=== PATIENT | female | born 1990 | race Caucasian/White ===

== ENCOUNTER 2016-12-31 08:40 | Inpatient (IN) | payer OTHER ==
[~2016-12-31] VITALS: Ht 152.4 cm; Wt 64.4 kg
[2016-12-31] VITALS (58 sets, daily range): BP systolic 101–155; BP diastolic 50–96; PULSE 81–131; RESP 18–20; TEMP 97.7–98.7
[~2016-12-31 08:40] MED LIST: IBUP800T23 PO
[2016-12-31] MEDS ORDERED: LACTATED RINGER'S 1000 ML INJ 1,000 ML IV PRN (09:54)
--- NOTE | 2016-12-31 09:58 | HHI.HP ---
HPI Chief Complaint Induction for post-dates Date Seen: Dec 31, 2016 Travel History International Travel<30 Days: No Contact w/Intl Traveler<30Days: No Known Affected Area: No History of Present Illness HPI Patient is a 26-year-old at 41/0 weeks gestation that presents to the [facility] for induction of labor. Patient is doing well today and has no complaints. She denies loss of fluid, vaginal bleeding, abnormal vaginal discharge, dysuria, fever, chills, abdominal pain. She endorses positive movements. Patient gets her care with [facility]. All her labs were negative or within normal limits. Notably, she is GBS negative. Her due date was December 24, 2016. She has an anterior placenta and baby is in the cephalic position. She is expecting a baby girl named Kandi. Para: 0 : 1 Miscarriage: 0 : 0 History Past Medical History Medical History: Denies Significant Hx Obstetric History Obstetric History Past Surgical History Narrative Surgical Cholecystectomy 4 years ago Family History Narrative Family History Dad has hypertension Social History Alcohol Use: No Tobacco Use: No Substance Abuse: No Allergies-Medications (Allergen,Severity, Reaction): Coded Allergies: No Known Allergies (Unverified , 04/24/15) Home Meds Discontinued Scripts Ibuprofen 800 Mg [id number] Mg PO TID 30 Days Ref 4 Prov:Alyson Varma MD 04/24/15 Review of Systems General / Constitutional: No: Fever, Chills HENT: No: Headaches Cardiovascular: No: Chest Pain or Discomfort, Palpitations, Edema Respiratory: No: Cough, Short of Breath Gastrointestinal: No: Nausea, Vomiting, Diarrhea, Abdominal Pain Genitourinary: No: Dysuria, Discharge, Vaginal Bleeding Musculoskeletal: Edema (Mild) Skin: No Rash Physical Exam Narrative GENERAL: Well-nourished, well-developed patient. SKIN: Warm and dry. HEAD: Normocephalic and atraumatic. EYES: No scleral icterus. No injection or drainage. ENT: No nasal drainage noted. Mucous membranes pink. Airway patent. NECK: Supple, trachea midline. No JVD. CARDIOVASCULAR: Regular rate and rhythm without murmurs, gallops, or rubs. RESPIRATORY: Breath sounds equal bilaterally. No accessory muscle use. BREASTS: Bilateral exam showed no masses , no retractions, no nipple discharge. ABDOMEN/GI: Abdomen soft, non-tender, bowel sounds present, no rebound, no guarding Gravid to 41 weeks size Fundal Height: 41 GENITOURINARY: External Genitalia: intact and normal in appearance Cervix: Posterior Dilatation: 3 cm Effacement: 50% Station: -2 Presentation: Cephalic Membranes: Intact Uterine Contractions: Minimal, infrequent FHT's: Category: 1 Baseline: 145 Reactive: Up to 160 Variability: Moderate Decels: None EXTREMITIES: No cyanosis or edema. BACK: Nontender without obvious deformity. No CVA tenderness. NEUROLOGICAL: Awake and alert. Motor and sensory grossly within normal limits. Five out of 5 muscle strength in all muscle groups. Normal speech. Data Data Vital Signs Reviewed: Yes Orders Admit To Inpatient (12/31/16 ) Code Status (12/31/16 09:54) Vital Signs (Adult) .Per protocol (12/31/16 09:54) Activity Oob Ad Ivett (12/31/16 09:54) Heart (12/31/16 09:54) Amnioinfusion (12/31/16 09:54) Urinary Catheter Management .ONCE (12/31/16 09:54) Diet Liquid (12/31/16 Breakfast) Lactated Ringer's 1000 Ml Inj (Lr 1000 M (12/31/16 09:54) Lactated Ringer's 1000 Ml Inj (Lr 1000 M (12/31/16 09:54) Sodium Chlorid 0.9% 500 Ml Inj (Ns 500 M (12/31/16 10:00) Sodium Chlor 0.9% 1000 Ml Inj (Ns 1000 M (12/31/16 10:14) Lidocaine 1% Inj (50 Ml) (Xylocaine 1% I (12/31/16 10:00) Citric Acid-Sodium Citrate Liq (Bicitra (12/31/16 10:00) Ondansetron Inj (Zofran Inj) (12/31/16 10:00) Fentanyl Inj (Fentanyl Inj) (12/31/16 10:00) Fentanyl Inj (Fentanyl Inj) (12/31/16 10:00) Complete Blood Count With Diff (12/31/16 09:54) Hold Clot (12/31/16 09:54) Abo/Rh Blood Type (12/31/16 09:54) Urinalysis - C+S If Indicated (12/31/16 09:54) Resp Oxygen Non Rebreathe Mask (12/31/16 ) ^ Epidural / Intrathecal Infus (12/31/16 09:54) Oxytocin 30 Units-500ml Premix (Pitocin (12/31/16 10:00) Lidocaine 1% Inj (50 Ml) (Xylocaine 1% I (12/31/16 10:00) Light Mineral Oil (Muri-Lube Oil) (12/31/16 10:00) Inpatient Certification (12/31/16 ) Specimen To Be Collected PRN (12/31/16 09:54) Assessment/Plan Problem List: (1) 41 weeks gestation of (2) Post term , 41 weeks Assessment and Plan 26 at 41/0 weeks gestation, GBS negative -Intrauterine - tracing category 1, reassuring -Minimal, infrequent contractions -Cervical dilation to 3 cm -Admit for induction -Start Pitocin -Expect vaginal delivery -Patient may want an epidural Discharge Planning Anticipate discharge in 3 days Renuka Coburn MD R1 Dec 31, 2016 09:58
[2016-12-31] MEDS ORDERED: OXYTOCIN 30 UNITS-500ML PREMIX 500 ML IV ONE (10:00)
[2016-12-31] MEDS ORDERED: LIDOCAINE HCL 1% 50 ML VIAL INFIL PRN (10:00)
[2016-12-31] MEDS ORDERED: CITRIC ACID-SODIUM CITRATE LIQ 30 ML UDC PO SCH (10:00)
[2016-12-31] MEDS ORDERED: LIDOCAINE HCL 1% 50 ML VIAL I-DERMAL PRN (10:00)
[2016-12-31] MEDS ORDERED: ONDANSETRON HCL 4 MG/2 ML VIAL IV PRN (10:00)
[2016-12-31] MEDS ORDERED: MINERAL OIL 10 ML VIAL TOPICAL PRN (10:00)
[2016-12-31] MEDS ORDERED: SODIUM CHLORID 0.9% 500 ML INJ 500 ML IV PRN (10:00)
[2016-12-31 10:07] LABS: BACTERIA, URINE RARE /hpf; BLOOD, URINE NEG (NEG); GLUCOSE,URINE NEG (NEG); KETONE, URINE NEG (NEG); MUCUS URINE FEW /lpf (OCC); NITRITE,URINE NEG (NEG); RENAL EPITHELIAL CELLS <1 /hpf; SQUAMOUS EPITHELIAL CELL URINE 1 /hpf (0-5); URINE COLOR YELLOW (YELLW/STRAW)
[2016-12-31 10:08] LABS: COMMENT (UR) CULT NOT INDICATED; CULTURE IF INDICATED CULT NOT INDICATED
[2016-12-31 10:13] LABS: AUTOMATED NEUTROPHIL # 8.4 TH/MM3 (1.8-7.7); BASOPHIL # 0.1 TH/MM3 (0-0.2); BASOPHIL % 0.5 % (0.0-2.0); EOSINOPHIL # 0.1 TH/MM3 (0-0.4); EOSINOPHIL % 0.9 % (0.0-4.0); HEMATOCRIT 38.3 % (35.0-46.0); LYMPH % 19.6 % (9.0-44.0); LYMPHOCYTE # 2.3 TH/MM3 (1.0-4.8); MEAN CORPUSCULAR HEMOGLOBIN 32.8 PG (27.0-34.0); MEAN CORPUSCULAR HGB CONC 35.3 % (32.0-36.0); MONO % 7.5 % (0.0-8.0); NEUT % 71.5 % (16.0-70.0); PLATELET COUNT 230 TH/MM3 (150-450); RED BLOOD COUNT 4.12 MIL/MM3 (4.00-5.30); RED CELL DISTRIBUTION WIDTH 13.1 % (11.6-17.2); WHITE BLOOD COUNT 11.8 TH/MM3 (4.0-11.0)
[2016-12-31] MEDS ORDERED: SODIUM CHLOR 0.9% 1000 ML INJ 1,000 ML IV PRN (10:14)
[2016-12-31 10:15] LABS: HEMO FLAGS AUTO DIFF
[2016-12-31] MEDS ORDERED: OXYTOCIN 30 UNITS-500ML PREMIX 500 ML IV SCH (10:30)
--- NOTE | 2016-12-31 10:36 | PD.LABORPN ---
Subjective Subjective This patient is a 26-year-old white female at 41 weeks sent for postdates induction she is [facility] heart rate tracing reactive and no Salvador contractions. Membranes intact cervix is 3/50 and -3 vertex presentation. Plan to begin Pitocin labor induction with rupture the membranes as soon as feasible. Objective Objective Pelvic Exam: Cervix: [-] Dilatation: [3-] Effacement: [50-] Station: [-3] Presentation: [-vtx] Membranes: [intact ] Uterine Contractions: [none-] FHT's: Category: [1-] Baseline: [133-] Reactive: [yes-] Variability: [mod-] Decels: [none-] Assessment/Plan Assessment and Plan Plan to begin Pitocin labor induction and follow that with artificial rupture membranes when feasible, plan labor management and anticipate vaginal delivery Jamari Nava II, MD Dec 31, 2016 10:36
[2016-12-31 10:55] LABS: BANDS 3 % (0-6); NEUTROPHIL # MANUAL DIFF 8.1 TH/MM3 (1.8-7.7); POLYS (SEG NEUTROPHILS) 66 % (16-70); WBC DIFF SAMPLE 100
[2016-12-31 10:56] LABS: PLATELET ESTIMATE SMEAR NORMAL (NORMAL); PLATELET MORPHOLOGY NORMAL (NORMAL); SCAN/DIFF FINAL DIFF MANUAL
--- NOTE | 2016-12-31 12:12 | PD.LABORPN ---
Subjective Subjective AROM - clear , IUPC inserted pit running cx 4/60/-3 vtx FHR reactive continue labor management Objective Vital Signs Vital Signs Date Time Temp Pulse Resp B/P Pulse Ox O2 Delivery O2 Flow Rate FiO2 12/31/16 11:30 101 138/85 12/31/16 11:02 20 12/31/16 11:02 91 123/90 Objective Pelvic Exam: Cervix: [-] Dilatation: [-4] Effacement: [-60] Station: [-3] Presentation: [vtx-] Membranes: ruptured] Uterine Contractions: [-irreg] FHT's: Category: [1-] Baseline: [-133] Reactive: [-yes] Variability: [mod-] Decels: [-none] Assessment/Plan Problem List: (1) 41 weeks gestation of (2) Post term , 41 weeks Jamari Nava II, MD Dec 31, 2016 12:12
[2016-12-31] MEDS ORDERED: PREN29TA PO (12:50)
[2016-12-31] MEDS: LACTATED RINGER'S 1000 ML INJ 1,000 ML IV SCH ×2 (14:09→18:00)
[2016-12-31] MEDS ORDERED: fentaNYL 2MCG-BUPIV 0.125% INJ 100 ML ONE (17:30)
[2017-01-01] VITALS (16 sets, daily range): BP systolic 106–147; BP diastolic 65–89; PULSE 100–151; RESP 18–20; TEMP 98–100.4
[2017-01-01] MEDS: LACTATED RINGER'S 1000 ML INJ 1,000 ML IV SCH ×2 (02:00→04:53)
--- NOTE | 2017-01-01 02:33 | PD.LABORPN ---
Subjective Subjective This primiparous patient is in the second stage of labor. She has a fairly dense epidural and was not able to feel movement anything they tried to push for 15-30 minutes and the was not making any progress she was allowed to labor down epidural is been turned off she started to feel a little bit but and she's pushed now for another 30 minutes but there is little progress the baby's head is still -2 with caput and molding. The patient can push and generate pressure in the pelvis however the baby's heart rate tracing is category 2 , with at times late decelerations and at other times of diminished heart rate variability. My opinion the baby would not tolerate another 1-2 hours of trying to push and that do so with the baby at risk for being acidotic time of and that's only she can make that her progress which I doubt at this stage she would be able to even get the baby's head to the pelvic floor during that time. So would recommend delivery for this baby due to nonreassuring heart rate tracing and failure to progress Objective Vital Signs Vital Signs Date Time Temp Pulse Resp B/P Pulse Ox O2 Delivery O2 Flow Rate FiO2 01/01/17 01:32 18 01/01/17 01:30 111 129/65 01/01/17 01:00 98.5 115 117/78 01/01/17 00:45 18 01/01/17 00:31 151 145/84 01/01/17 00:15 18 01/01/17 00:03 100 123/89 12/31/16 23:40 106 12/31/16 23:35 131 12/31/16 23:30 111 137/71 12/31/16 23:30 97.9 12/31/16 23:30 130 12/31/16 23:15 18 12/31/16 23:10 111 12/31/16 23:05 109 12/31/16 23:00 112 12/31/16 23:00 110 118/66 12/31/16 22:39 18 12/31/16 22:35 110 12/31/16 22:30 108 141/82 12/31/16 22:30 95 12/31/16 22:11 18 12/31/16 22:10 102 12/31/16 22:05 101 12/31/16 22:00 105 12/31/16 22:00 104 127/79 12/31/16 21:56 18 12/31/16 21:30 94 12/31/16 21:30 98 129/85 12/31/16 21:15 18 12/31/16 21:10 102 12/31/16 21:05 104 12/31/16 21:01 101 111/62 12/31/16 21:00 98.3 101 12/31/16 20:45 18 12/31/16 20:40 100 12/31/16 20:35 96 12/31/16 20:30 100 139/91 12/31/16 20:06 18 12/31/16 20:05 84 12/31/16 20:00 83 12/31/16 20:00 82 116/62 12/31/16 19:32 18 12/31/16 19:30 84 101/50 12/31/16 19:30 81 12/31/16 19:30 18 12/31/16 19:14 18 12/31/16 19:00 93 18 109/62 12/31/16 18:32 98.7 18 12/31/16 18:30 96 12/31/16 18:30 97 126/80 Objective Pelvic Exam: Cervix: [10-] Dilatation: [10-] Effacement: [100-] Station: [-2] Presentation: [vtx-] Membranes: ruptured] Uterine Contractions: [reg-] FHT's: Category: [2-] Baseline: [-155] Reactive: [-at times NR at other] Variability: [minimal to moderate-] Decels: [occasional late decels-] Assessment/Plan Problem List: (1) 41 weeks gestation of (2) Post term , 41 weeks Jamari Nava II, MD Jan 01, 2017 02:33
[2017-01-01] MEDS ORDERED: ceFAZolin INJ 1,000 MG VIAL ONE (02:37)
[2017-01-01] MEDS ORDERED: OXYTOCIN 10 UNIT/ML AMP ONE (02:37)
[2017-01-01] MEDS ORDERED: ACETAMINOPHEN 1000 MG/100 ML VIAL IV ONE (03:32)
[2017-01-01] MEDS ORDERED: SIMETHICONE 80 MG CHEWABLE TAB PO PRN (04:00)
[2017-01-01] MEDS ORDERED: ONDANSETRON HCL 4 MG/2 ML VIAL IV PUSH PRN (04:00)
[2017-01-01] MEDS ORDERED: ACETAMINOPHEN 325 MG TAB PO PRN (04:00)
[2017-01-01] MEDS ORDERED: KETOROLAC TROMETHAMINE 60 MG/2 ML (IM) VIAL IM PRN (04:00)
[2017-01-01] MEDS ORDERED: ZOLPIDEM TARTRATE 5 MG TAB PO PRN (04:00)
[2017-01-01] MEDS ORDERED: SODIUM CHLORIDE 0.9% FLUSH 10 ML FLUSH IV FLUSH PRN (04:00)
[2017-01-01] MEDS ORDERED: OXYTOCIN 30 UNITS-500ML PREMIX 500 ML IV ONE (04:00)
[2017-01-01] MEDS ORDERED: MORPHINE SULFATE PF 5 MG/10 ML VIAL ONE (04:02)
[2017-01-01] MEDS ORDERED: KETOROLAC TROMETHAMINE 30 MG/ML (IVP) VIAL ONE (05:03)
[2017-01-01] MEDS ORDERED: EPIDURAL-NALOXONE HCL 0.4 MG/ML AMP IV PRN (06:00)
[2017-01-01] MEDS ORDERED: EPIDURAL-DO NOT ADMINISTER ANTICOAGULANTS PRN (06:00)
[2017-01-01] MEDS ORDERED: EPIDURAL-DIPHENHYDRAMINE HCL 50 MG CAP PO PRN (06:00)
[2017-01-01] MEDS ORDERED: EPIDURAL-DIPHENHYDRAMINE HCL 50 MG/ML VIAL IV PUSH PRN (06:00)
[2017-01-01] MEDS ORDERED: EPIDURAL-NO SYSTEMIC NARCOTICS PRN (06:00)
--- NOTE | 2017-01-01 08:35 | HHI.OB ---
Subjective Post Operative Day: 0 Remarks POD 0 AF VSS Pt with a 3 am C/S for FTP , NR FHR tracing , currently mother & baby doing well bandage dry uterus at umb Plan to cont progressive postop care Objective Vitals/I&O Vital Signs Date Time Temp Pulse Resp B/P Pulse Ox O2 Delivery O2 Flow Rate FiO2 01/01/17 05:45 98.9 110 18 130/75 01/01/17 05:00 18 01/01/17 05:00 111 135/79 01/01/17 04:45 119 18 132/71 01/01/17 04:30 118 18 125/73 01/01/17 04:15 117 18 123/76 01/01/17 04:00 100.4 107 18 01/01/17 04:00 132/74 01/01/17 01:32 18 01/01/17 01:30 111 129/65 01/01/17 01:00 98.5 115 117/78 01/01/17 00:45 18 01/01/17 00:31 151 145/84 01/01/17 00:15 18 01/01/17 00:03 100 123/89 12/31/16 23:40 106 12/31/16 23:35 131 12/31/16 23:30 111 137/71 12/31/16 23:30 97.9 12/31/16 23:30 130 12/31/16 23:15 18 12/31/16 23:10 111 12/31/16 23:05 109 12/31/16 23:00 112 12/31/16 23:00 110 118/66 12/31/16 22:39 18 12/31/16 22:35 110 12/31/16 22:30 108 141/82 12/31/16 22:30 95 12/31/16 22:11 18 12/31/16 22:10 102 12/31/16 22:05 101 12/31/16 22:00 105 12/31/16 22:00 104 127/79 12/31/16 21:56 18 12/31/16 21:30 94 12/31/16 21:30 98 129/85 12/31/16 21:15 18 12/31/16 21:10 102 12/31/16 21:05 104 12/31/16 21:01 101 111/62 12/31/16 21:00 98.3 101 12/31/16 20:45 18 12/31/16 20:40 100 12/31/16 20:35 96 12/31/16 20:30 100 139/91 12/31/16 20:06 18 12/31/16 20:05 84 12/31/16 20:00 83 12/31/16 20:00 82 116/62 12/31/16 19:32 18 12/31/16 19:30 84 101/50 12/31/16 19:30 81 12/31/16 19:30 18 12/31/16 19:14 18 12/31/16 19:00 93 18 109/62 12/31/16 18:32 98.7 18 12/31/16 18:30 96 12/31/16 18:30 97 126/80 12/31/16 18:10 96 12/31/16 18:10 93 136/82 12/31/16 18:05 104 12/31/16 18:05 96 136/74 12/31/16 18:00 101 134/88 12/31/16 18:00 94 12/31/16 17:45 18 12/31/16 17:31 90 155/80 12/31/16 17:00 91 148/80 12/31/16 16:45 18 12/31/16 16:30 98 127/79 12/31/16 16:01 101 107/65 12/31/16 15:38 92 136/83 12/31/16 15:30 95 138/63 12/31/16 15:10 97.7 18 12/31/16 15:00 90 137/82 12/31/16 14:03 18 12/31/16 14:00 87 144/95 12/31/16 13:34 93 134/84 12/31/16 13:31 92 141/96 12/31/16 13:07 97.8 18 12/31/16 12:37 20 12/31/16 12:30 97 124/81 12/31/16 12:11 20 12/31/16 12:10 95 124/81 12/31/16 11:30 101 138/85 12/31/16 11:02 20 12/31/16 11:02 91 123/90 Result Diagram: 12/31/16 0915 Objective Remarks GENERAL: Well-nourished, well-developed patient. CARDIOVASCULAR: Regular rate and rhythm without murmurs, gallops, or rubs. RESPIRATORY: Breath sounds equal bilaterally. No accessory muscle use. ABDOMEN/GI: Abdomen soft, non-tender, bowel sounds present. Incision: Clean, dry and intact. Fundus: Firm, non-tender at umbilicus. GENITOURINARY: Light to moderate bleeding. EXTREMITIES: No cyanosis or edema, non-tender, without signs of DVT. Medications and IVs Current Medications Medications (Trade) Dose Ordered Sig/Stefan Route Start Time Stop Time Status Last Admin Lactated Ringer's 1,000 ml @ 100 mls/hr Q10H IV 01/01/17 08:50 01/02/17 04:49 (Pitocin 30 Units-NS 500 ml Premix) 500 ml @ 100 mls/hr ONCE ONCE IV 01/01/17 04:00 01/01/17 08:59 01/01/17 05:14 (NS Flush) 2 ml BID IV FLUSH 01/01/17 09:00 (NS Flush) 2 ml UNSCH PRN IV FLUSH 01/01/17 04:00 (Mylicon Chew) 80 mg QID PRN PO 01/01/17 04:00 (Tylenol) 650 mg Q6H PRN PO 01/01/17 04:00 (Motrin) 600 mg Q6H PRN PO 01/01/17 04:00 (Toradol Inj) 30 mg Q6H PRN IM 01/01/17 04:00 01/02/17 03:59 (Percocet 5-325 Mg) 1 tab Q4H PRN PO 01/01/17 04:00 Oxycodone/ Acetaminophen 2 tab 2 tab Q4H PRN PO 01/01/17 04:00 (Ancef Inj/NS Inj) 100 ml @ 200 mls/hr Q8H IV 01/01/17 04:00 01/01/17 12:29 (Cindi-Colace) 2 tab Q12H PRN PO 01/01/17 04:00 (Ambien) 5 mg HS PRN PO 01/01/17 04:00 (M-M-R Ii Inj) 0.5 ml ONCE ONCE SQ 4/9/17 16:00 01/02/17 16:01 (Boostrix Inj) 0.5 ml ONCE ONCE IM 01/02/17 16:00 01/02/17 16:01 (Zofran Inj) 4 mg Q6H PRN IV PUSH 01/01/17 04:00 Miscellaneous Information NO SYSTEMIC NARCOTICS TO BE GIVEN FO... UNSCH PRN .XX 01/01/17 06:00 01/02/17 05:59 (Narcan Inj) 0.4 mg UNSCH PRN IV 01/01/17 06:00 01/02/17 05:59 (Benadryl Inj) 25 mg Q6H PRN IV PUSH 01/01/17 06:00 01/02/17 05:59 (Benadryl) 50 mg Q6H PRN PO 01/01/17 06:00 01/02/17 05:59 Miscellaneous Information ALL NURSING DEPARTMENTS UNSCH PRN .XX 01/01/17 06:00 01/02/17 05:59 Assessment/Plan Problem List: (1) 41 weeks gestation of (2) Post term , 41 weeks Assessment and Plan 26 at 41/0 weeks gestation, GBS negative Delivered by C/S Mother & baby doing well Discharge Planning Anticipate discharge in 3 days Jamari Nava II, MD Jan 01, 2017 08:35
[2017-01-01] MEDS ORDERED: LACTATED RINGER'S 1000 ML INJ 1,000 ML IV SCH (08:50)
[2017-01-01] MEDS ORDERED: SODIUM CHLORIDE 0.9% FLUSH 10 ML FLUSH IV FLUSH SCH (09:00)
[2017-01-01] MEDS ORDERED: OXYTOCIN 30 UNITS-500ML PREMIX 500 ML IV PRN (14:00)
[2017-01-01] MEDS ORDERED: ceFAZolin 1,000 MG/NS 100 ML IV ONE ×2 (21:00)
[2017-01-01] MEDS: IBUPROFEN 600 MG TAB PO PRN (21:08)
[2017-01-01] MEDS: DOCUSATE SODIUM 50 MG/SENNA 8.6 MG TAB PO PRN (21:09)
[2017-01-02] MEDS: oxyCODONE/ACETAMINOPHEN 5 MG/325 MG TAB PO PRN ×3 (01:44→20:45)
[2017-01-02 06:03] LABS: AUTOMATED NEUTROPHIL # 9.2 TH/MM3 (1.8-7.7); BASOPHIL # 0.1 TH/MM3 (0-0.2); BASOPHIL % 0.7 % (0.0-2.0); EOSINOPHIL # 0.1 TH/MM3 (0-0.4); EOSINOPHIL % 0.7 % (0.0-4.0); HEMATOCRIT 30.9 % (35.0-46.0); HEMO FLAGS DIFF FINAL; LYMPH % 16.7 % (9.0-44.0); MEAN CELL VOLUME 94.3 FL (80.0-100.0); MEAN CORPUSCULAR HEMOGLOBIN 33.5 PG (27.0-34.0); MEAN CORPUSCULAR HGB CONC 35.5 % (32.0-36.0); MONO % 5.9 % (0.0-8.0); PLATELET COUNT 201 TH/MM3 (150-450); RED BLOOD COUNT 3.28 MIL/MM3 (4.00-5.30); RED CELL DISTRIBUTION WIDTH 13.6 % (11.6-17.2)
[2017-01-02 08:30] VITALS: BP 125/78; PULSE 96; RESP 18; TEMP 97.8
[2017-01-02] MEDS: IBUPROFEN 600 MG TAB PO PRN ×2 (08:30→20:45)
--- NOTE | 2017-01-02 09:26 | HHI.OB ---
Subjective Post Operative Day: 1 Remarks Patient is doing well this morning. She is ambulating and voiding without difficulty. Her pain is controlled with medication. She is breast-feeding. Vaginal bleeding is within normal limits. No fever, chills, chest pain, shortness of breath. (Denton Rajput MD R2) Objective Vitals/I&O Vital Signs Date Time Temp Pulse Resp B/P Pulse Ox O2 Delivery O2 Flow Rate FiO2 01/01/17 21:00 98.5 106 20 106/67 01/01/17 17:15 98.4 109 18 117/79 (Denton Rajput MD R2) Result Diagram: 01/02/17 0545 Objective Remarks GENERAL: Well-nourished, well-developed patient. CARDIOVASCULAR: Regular rate and rhythm without murmurs, gallops, or rubs. RESPIRATORY: Breath sounds equal bilaterally. No accessory muscle use. ABDOMEN/GI: Abdomen soft, non-tender, bowel sounds present. Incision: Clean, dry and intact. Fundus: Firm, non-tender at umbilicus. GENITOURINARY: Light to moderate bleeding. EXTREMITIES: No cyanosis or edema, non-tender, without signs of DVT. Medications and IVs Current Medications Medications (Trade) Dose Ordered Sig/Stefan Route Start Time Stop Time Status Last Admin (NS Flush) 2 ml BID IV FLUSH 01/01/17 09:00 (NS Flush) 2 ml UNSCH PRN IV FLUSH 01/01/17 04:00 (Mylicon Chew) 80 mg QID PRN PO 01/01/17 04:00 (Tylenol) 650 mg Q6H PRN PO 01/01/17 04:00 (Motrin) 600 mg Q6H PRN PO 01/01/17 04:00 01/02/17 08:30 (Percocet 5-325 Mg) 1 tab Q4H PRN PO 01/01/17 04:00 01/02/17 01:44 (Percocet 5-325 Mg) 2 tab Q4H PRN PO 01/01/17 04:00 01/02/17 08:30 (Cindi-Colace) 2 tab Q12H PRN PO 01/01/17 04:00 01/01/17 21:09 (Ambien) 5 mg HS PRN PO 01/01/17 04:00 (M-M-R Ii Inj) 0.5 ml ONCE ONCE SQ 01/02/17 16:00 01/02/17 16:01 (Boostrix Inj) 0.5 ml ONCE ONCE IM 01/02/17 16:00 01/02/17 16:01 (Zofran Inj) 4 mg Q6H PRN IV PUSH 01/01/17 04:00 (Denton Rajput MD R2) Assessment/Plan Problem List: (1) 41 weeks gestation of (2) Post term , 41 weeks Assessment and Plan 26 yo who is POD1 from CS (01/01 at 0300) -Continue Percocet/Motrin for pain control -Continue to monitor vital signs, vaginal bleeding -Continue to encourage breast-feeding -Continue stool softener -Continue to encourage ambulation -Advance diet as tolerated -Plan for incision check in 1 week/ follow-up Discussed with Dr. Carver Discharge Planning Anticipate discharge in 2-3days (Denton Rajput MD R2) Attending Attestation Agree with resident A/P. and doing well. (Wen Chen MD) Denton Rajput MD R2 Jan 02, 2017 09:26 Wen Chen MD Jan 02, 2017 10:11
[2017-01-02] MEDS ORDERED: DIPHTH/TETANUS/ACEL PERTUSSIS (BOOSTER) 0.5 ML VIAL/PFS IM ONE (16:00)
[2017-01-02] MEDS ORDERED: MEASLES, MUMPS, RUBELLA VACCINE 0.5 ML VIAL SQ ONE (16:00)
[2017-01-02 16:30] VITALS: TEMP 98.5
[2017-01-02 20:00] VITALS: BP 124/86; PULSE 103; RESP 18; TEMP 98.3
[2017-01-03] MEDS: IBUPROFEN 600 MG TAB PO PRN ×3 (05:25→18:16)
--- NOTE | 2017-01-03 07:22 | HHI.OB ---
Subjective Post Operative Day: 2 Remarks Postoperative day # 2. AFVSS overnight. Pain well-controlled. Incision clean, dry, and intact, not draining. Lochia less than a period. She is feeding the baby via breast. Appetite good. No nausea or vomiting. Positive flatus. No bowel movement. Ambulating well. Denies fever, chills, cough, shortness of breath, chest pain, and calf pain. Otherwise, she is doing well this morning and has no other complaints. Objective Vitals/I&O Vital Signs Date Time Temp Pulse Resp B/P Pulse Ox O2 Delivery O2 Flow Rate FiO2 01/02/17 20:00 98.3 103 18 124/86 01/02/17 16:30 98.5 01/02/17 08:30 97.8 01/02/17 08:30 96 18 125/78 Result Diagram: 01/02/17 0545 Objective Remarks GENERAL: Well-nourished, well-developed patient. CARDIOVASCULAR: Regular rate and rhythm without murmurs, gallops, or rubs. RESPIRATORY: Breath sounds equal bilaterally. No accessory muscle use. ABDOMEN/GI: Abdomen soft, non-tender, bowel sounds present. Incision: Clean, dry and intact. Fundus: Firm, non-tender at umbilicus. GENITOURINARY: Light to moderate bleeding. EXTREMITIES: No cyanosis or edema, non-tender, without signs of DVT. Medications and IVs Current Medications Medications (Trade) Dose Ordered Sig/Stefan Route Start Time Stop Time Status Last Admin (NS Flush) 2 ml BID IV FLUSH 01/01/17 09:00 (NS Flush) 2 ml UNSCH PRN IV FLUSH 01/01/17 04:00 (Mylicon Chew) 80 mg QID PRN PO 01/01/17 04:00 (Tylenol) 650 mg Q6H PRN PO 01/01/17 04:00 (Motrin) 600 mg Q6H PRN PO 01/01/17 04:00 01/03/17 05:25 (Percocet 5-325 Mg) 1 tab Q4H PRN PO 01/01/17 04:00 01/02/17 20:45 (Percocet 5-325 Mg) 2 tab Q4H PRN PO 01/01/17 04:00 01/03/17 00:00 (Cindi-Colace) 2 tab Q12H PRN PO 01/01/17 04:00 01/01/17 21:09 (Ambien) 5 mg HS PRN PO 01/01/17 04:00 (Zofran Inj) 4 mg Q6H PRN IV PUSH 01/01/17 04:00 Assessment/Plan Problem List: (1) 41 weeks gestation of (2) Post term , 41 weeks Assessment and Plan 26 yo who is POD2 from CS (01/01 at 0300) -Continue Percocet/Motrin for pain control -Continue to monitor vital signs, vaginal bleeding -Continue to encourage breast-feeding -Continue stool softener -Continue to encourage ambulation -Advance diet as tolerated -Pelvic rest for 6 weeks -Plan for incision check in 1 week/ follow-up Discussed with Dr. Nava Discharge Planning Anticipate discharge home today or tomorrow Renuka Coburn MD R1 Jan 03, 2017 07:22
[2017-01-03] MEDS ORDERED: IBUP-232 PO (09:05)
[2017-01-03] MEDS ORDERED: OXYC1TAB63 PO (09:05)
[2017-01-03] MEDS ORDERED: SENN1TAB PO (09:05)
--- NOTE | 2017-01-03 09:06 | HHI.DCPOC ---
Discharge Care Plan Diagnosis: (1) care following delivery Your Health Problems Are: delivery Report Symptoms to Your Doctor -Temperate above 100.5 degrees -Redness, of incision or excessive or foul smelling drainage -Unusual pain or calf pain -Increased vaginal bleeding -Painful or difficulty urinating -Feelings of extreme sadness or anxiety after 2 weeks Goals to Promote Your Health * To prevent worsening of your condition and complications * To maintain your health at the optimal level Directions to Meet Your Goals Take your medications as prescribed Follow your dietary instruction Follow activity as directed Ensure plenty of rest for recovery Drink fluids for hydration Keep your appointments as scheduled Take your immunizations and boosters as scheduled If your symptoms worsen call your PCP, if no PCP go to Urgent Care Center or Emergency Room Smoking is Dangerous to Your Health. Avoid second hand smoke Call the 24-hour crisis hotline for domestic abuse at Darrel Fitzgerald MD R2 Jan 03, 2017 09:06
[2017-01-03 09:25] VITALS: BP 140/91
[2017-01-03 09:30] VITALS: BP 133/92; PULSE 89; RESP 18; TEMP 98.3
[2017-01-03] MEDS: DOCUSATE SODIUM 50 MG/SENNA 8.6 MG TAB PO PRN (12:24)
[2017-01-03] MEDS: oxyCODONE/ACETAMINOPHEN 5 MG/325 MG TAB PO PRN ×3 (12:29→18:16)
[2017-01-03 12:55] VITALS: BP 136/79; PULSE 90
[2017-01-03 20:10] VITALS: BP 133/85; PULSE 100; RESP 18; TEMP 98.7
[2017-01-04] MEDS: IBUPROFEN 600 MG TAB PO PRN ×2 (01:22→08:38)
--- NOTE | 2017-01-04 07:19 | HHI.OB ---
Subjective Post Operative Day: 3 Remarks Postoperative day # 3. AFVSS overnight. Pain well-controlled. Incision clean, dry, and intact, not draining. Lochia like a period. She is feeding the baby via breast. Appetite good. No nausea or vomiting. Positive flatus. No bowel movement. Ambulating well. Denies fever, chills, cough, shortness of breath, chest pain, and calf pain. Otherwise, she is doing well this morning and has no other complaints. (Eko,Renuka Arrieta MD R1) Objective Vitals/I&O Vital Signs Date Time Temp Pulse Resp B/P Pulse Ox O2 Delivery O2 Flow Rate FiO2 01/03/17 20:10 98.7 100 18 133/85 01/03/17 12:55 90 136/79 01/03/17 09:30 89 18 133/92 01/03/17 09:30 98.3 01/03/17 09:25 140/91 (Eko,Renuka Arrieta MD R1) Result Diagram: 01/02/17 0545 Objective Remarks GENERAL: Well-nourished, well-developed patient. CARDIOVASCULAR: Regular rate and rhythm without murmurs, gallops, or rubs. RESPIRATORY: Breath sounds equal bilaterally. No accessory muscle use. ABDOMEN/GI: Abdomen soft, non-tender, bowel sounds present. Incision: Clean, dry and intact. Fundus: Firm, non-tender at umbilicus. GENITOURINARY: Light to moderate bleeding. EXTREMITIES: No cyanosis or edema, non-tender, without signs of DVT. Medications and IVs Current Medications Medications (Trade) Dose Ordered Sig/[facility] Route Start Time Stop Time Status Last Admin (NS Flush) 2 ml BID IV FLUSH 01/01/17 09:00 (NS Flush) 2 ml UNSCH PRN IV FLUSH 01/01/17 04:00 (Mylicon Chew) 80 mg QID PRN PO 01/01/17 04:00 (Tylenol) 650 mg Q6H PRN PO 01/01/17 04:00 (Motrin) 600 mg Q6H PRN PO 01/01/17 04:00 01/04/17 01:22 (Percocet 5-325 Mg) 1 tab Q4H PRN PO 01/01/17 04:00 01/02/17 20:45 (Percocet 5-325 Mg) 2 tab Q4H PRN PO 01/01/17 04:00 01/03/17 18:16 (Cindi-Colace) 2 tab Q12H PRN PO 01/01/17 04:00 01/03/17 12:24 (Ambien) 5 mg HS PRN PO 01/01/17 04:00 (Zofran Inj) 4 mg Q6H PRN IV PUSH 01/01/17 04:00 (Renuka Coburn MD R1) Assessment/Plan Problem List: (1) 41 weeks gestation of (2) Post term , 41 weeks Assessment and Plan 26 yo who is POD3 from CS (01/01 at 0300) -Continue Percocet/Motrin for pain control -Continue to monitor vital signs, vaginal bleeding -Continue to encourage breast-feeding -Continue stool softener -Continue to encourage ambulation -Advance diet as tolerated -Pelvic rest for 6 weeks -Plan for incision check in 1 week/ follow-up Discussed with Dr. Leonardo Discharge Planning Anticipate discharge home today (Renuka Coburn MD R1) Attestation Patient seen and examined. Agree with resident's assessment and plan. (Laila Leonardo MD) Renuka Coburn MD R1 Jan 04, 2017 07:19 Laila Leonardo MD Jan 04, 2017 10:52
[2017-01-04 08:30] VITALS: BP 128/87; PULSE 89; RESP 16; TEMP 98.4
[2017-01-04] MEDS: DOCUSATE SODIUM 50 MG/SENNA 8.6 MG TAB PO PRN (08:36)
--- NOTE | 2017-01-04 08:46 | MP ---
cc: RAHEEM NAVA MD DATE OF SURGERY 01/01/2017 PREOPERATIVE DIAGNOSIS Post dates induction, failure to progress, non-reassuring heart rate tracing. POSTOPERATIVE DIAGNOSIS Post dates induction, failure to progress, non-reassuring heart rate tracing. PROCEDURE PERFORMED Primary low transverse section SURGEON Raheem Nava MD ANODIC TREATER Dr. Li ANESTHESIA Epidural PREOP NOTE The patient is a 26 year-old white female G1, P0 at 41-weeks who was induced for post-dates. She went to the second stage of labor and pushed for approximately an hour. The heart tracing showed repetitive late decelerations. It was felt the baby was not tolerating her pushing efforts and those efforts were minimal as the head was at -2 and it stayed so for several hours. It was felt she had failure to progress, as well as a category 2 non-reassuring heart rate tracing and it was felt section was needed for delivery. PROCEDURE The patient was taken to the operating room, placed in the supine position on the operating room table. After adequate epidural anesthesia was administered, she was prepped and draped for abdominal surgery. A Pfannenstiel incision was made in the lower abdomen and carried through the fascia sharply. The fascia was dissected off the rectus muscle and the rectus split in the midline. Peritoneal cavity entered sharply. The incision was extended superiorly and inferiorly and stretched open. A bladder blade was placed at the lower edge of the incision and the visceral peritoneum reflected off the lower uterine segment and placed on the bladder blade. A transverse hysterotomy was made and extended bluntly bilaterally. A female was delivered at 3:05 a.m. weight 3670 grams, 's 8 and 9. There were no complications with delivery. Cord blood obtained. Cord gas sent for analysis which is pending at the time of this dictation. The placenta was manually extracted and intact. The uterus exteriorized. The hysterotomy closed with a running layer of 0 chromic followed by imbricating suture of same and hemostasis was achieved with a [id number] stick tie on one angle on the left side. The ovaries and tubes were within normal limits. The uterus was elevated. Blood suctioned from the cul-de-sac gutters. The bladder reapproximated in the lower uterine segment with 2-0 running Vicryl and the uterus then placed in the peritoneal cavity. The parietoperitoneum anteriorly was closed in a running layer of 2-0 Vicryl. The muscle reapproximated with stick ties of chromic. The fascia was closed in a running layer of 0 Vicryl. The subcutaneous tissues were reapproximated with a running layer of 0 plain catgut. The skin was closed with a running Monocryl subcuticular stitch. Steri-Strips and a pressure dressing applied. ESTIMATED BLOOD LOSS 100 cc COMPLICATIONS There were no complications. Sponge, needle and instrument counts were correct x 2 and the patient was taken to Recovery in stable condition. MD CONCHIS Paredes/NANCY /3:58 AM /8:32 AM
== END 2017-01-04 11:57 | disposition home or self-care (01) | DRG 766 ==
LOC: H2EB 08:40 → H1EA 01-01 05:38
PROVIDERS: ADMIT Obstetrics & Gynecology Obstetrics; ATTEND Obstetrics & Gynecology Obstetrics
PROC: 3E033VJ Introduction of Other Hormone into Peripheral Vein, Percutaneous Approach (ICD-10-PCS; 2016-12-31)
PROC: 10D00Z1 Extraction of Products of Conception, Low, Open Approach (ICD-10-PCS; principal; 2017-01-01)
DX: O48.0 Post-term pregnancy (principal); O32.4XX0 Maternal care for high head at term, not applicable or unspecified; Z37.0 Single live birth; Z3A.41 41 weeks gestation of pregnancy; O76 Abnormality in fetal heart rate and rhythm complicating labor and delivery
CPT/HCPCS: 59025; 81001; 85007; 85025; 85027; 85461; 86850; 86900; 86901; 90384; J0131; J0690; J1885; J2274; J2590; J2790; J3010; J7120